=== PATIENT | female | born 1970 | race Caucasian/White ===

== ENCOUNTER → 2017-03-20 | Day surgery (SDC) | payer OTHER ==
--- NOTE | 2017-03-19 10:10 | TH ---
cc: MP RUBY MD DATE 03/20/2017 REASON FOR ADMISSION This patient is a 46-year-old white female. She is a 2, para 2 who is being admitted to [facility] for endometrial ablation and hysteroscopy due to hypermenorrhea and anemia. HISTORY OF PRESENT ILLNESS The patient was recently seen in the office for evaluation of anemia and heavy vaginal bleeding. An endometrial biopsy was performed which was benign. We discussed the different modes of therapy. The patient has opted for surgical solution including NovaSure ablation. The risks and the procedure were discussed at length with the patient. PAST MEDICAL HISTORY 1. The patient's medical history is significant for anemia and she goes for B12 injections regularly. 2. She also has hypothyroidism and is on 15 mcg of Levothyroxine and trazodone for help with her depression. SOCIAL HISTORY She is a former smoker and she denies any alcohol use. FAMILY HISTORY Family history is significant that her mother has breast and ovarian cancer. Father has COPD and hypertension. ALLERGIES PENICILLIN. TETANUS TOXOID. GUT SUTURE. REVIEW OF SYSTEMS Review of systems is taken and is noncontributory. PHYSICAL EXAMINATION GENERAL: The patient is seen well-developed, well-nourished, in no acute distress. VITAL SIGNS: Blood pressure was 107/71, pulse of 70, respirations of 12. HEENT: Negative. CHEST: Clear to auscultation. CARDIOVASCULAR: Regular rate. ABDOMEN: Soft. Bowel sounds were positive. PELVIC EXAMINATION: The uterus was within normal limits of size. There is no adnexal mass palpable. EXTERNAL GENITALIA: Within normal limits. EXTREMITIES: No cyanosis, clubbing or edema. NEUROPSYCHIATRIC: The patient is oriented x3 and showed no gross neurocranial deficit. IMPRESSION ON ADMISSION Hypermenorrhea and anemia. PLAN The plan was for hysteroscopy and NovaSure ablation. MD JAMMIE Sood/DENISHA /9:52 AM /9:57 AM
[~2017-03-20] MED LIST: CLINDAMYCIN PHOS 600 MG/4 ML VIAL ONE; CLINDAMYCIN PHOS 900 MG/6 ML VIAL ONE; CYAN1000P IM; KETOROLAC TROMETHAMINE 30 MG/ML (IVP) VIAL IV PUSH ONE; LACTATED RINGER'S 1000 ML INJ 1,000 ML ONE; LEVO50TA4 PO; MIDAZOLAM HCL 2 MG/2 ML VIAL ONE; ONDANSETRON HCL 4 MG/2 ML VIAL IV PUSH ONE; ONDANSETRON HCL 4 MG/2 ML VIAL IV PUSH PRN; PROPOFOL 200 MG/20 ML AMP IV ONE; SODIUM CHLORIDE 0.9% 100 ML ADDBAG IV ONE; TRAZ100T10 PO; TRAZ100T4 PO; oxyCODONE/ACETAMINOPHEN 5 MG/325 MG TAB PO PRN
--- NOTE | 2017-03-20 08:52 | MP ---
cc: JULIOCESAR AUGUSTE MD DATE OF SURGERY: 03/20/2017 PREOPERATIVE DIAGNOSIS Hypermenorrhea. POSTOPERATIVE DIAGNOSIS Hypermenorrhea. OPERATION Hysteroscopy and NovaSure endometrial ablation. SURGEON Molina. ANESTHESIA General. ESTIMATED BLOOD LOSS Minimal. FINDINGS None. MEDIA JOB TITLES None. COMPLICATIONS None. PROCEDURE The patient was prepped and draped in the dorsal lithotomy position. A weighted speculum was placed in the posterior vaginal vault and the anterior lip of the cervix was grasped with a single-tooth tenaculum. The cervix was dilated up using Greg dilators and then a NovaSure ablation unit was inserted. Dimensions of the length and width of the uterus were taken. These were then sent into the NovaSure ablation unit and it was set on the heat cycle for approximately a minute and a half. The ablation unit was then withdrawn and a hysteroscope was then inserted in the endometrial cavity to ensure that all quadrants of the uterine cavity were ablated and they were. The hysteroscope was withdrawn. The tenaculum and speculum were removed. The patient returned to the recovery room in stable condition. Juliocesar Auguste MD JSG/BT /8:16 AM /8:50 AM
== END | disposition home or self-care (01) ==
LOC: ESDC 06:03
PROVIDERS: ATTEND Obstetrics & Gynecology
DX: N92.0 Excessive and frequent menstruation with regular cycle (principal); D64.9 Anemia, unspecified; E03.9 Hypothyroidism, unspecified
CPT/HCPCS: 00952; 58563; J1885; J2250; J2405; J3010; J7120